=== PATIENT | male | born 1935 | race Caucasian/White ===

== ENCOUNTER 2018-12-22 10:13 | Emergency (ER) | payer OTHER ==
[2018-12-22] MEDS ORDERED: SODIUM CHLORIDE 1,000 ML IV SCH (10:45)
[2018-12-22] MEDS ORDERED: levETIRAcetam 500 MG/5 ML INJECTION VIAL IVPB ONE ×2 (10:57→11:08)
[2018-12-22] MEDS ORDERED: DEXAMETHASONE SOD PHOSPHATE 20 MG/5 ML VIAL IVPB ONE (10:57)
[2018-12-22] MEDS ORDERED: DEXAMETHASONE SOD PHOSPHATE 10 MG/1 ML VIAL IVPUSH ONE (11:01)
[2018-12-22 11:03] VITALS: BMI 23.3
[2018-12-22] MEDS ORDERED: DEXAMETHASONE SOD PHOSPHATE 10 MG/1 ML VIAL ONE (11:08)
[2018-12-22 11:09] LABS: BASO % 0.9 % (0-2.0); EOS % 1.9 % (0-4.5); HEMATOCRIT 38.2 % (35.4-49); HEMOGLOBIN 12.5 GM/dL (11.7-16.9); LYMPH % 23.7 % (8-40); MCH 29.2 pg (25.7-33.7); MCHC 32.9 g/dl (32.0-35.9); MEAN CELL VOLUME 88.9 fl (80-96); NEUT % 64.5 % (42.8-82.8); PLATELET COUNT 107 K/MM3 (134-434); RBC 4.29 M/mm3 (4.00-5.60); RDW 15.1 % (11.9-15.9); WHITE BLOOD COUNT 3.2 K/mm3 (4.0-10.0)
[2018-12-22 11:21] LABS: INR 1.08 (0.83-1.09); PROTHROMBIN TIME (PATIENT) 12.8 SEC (9.7-13.0)
[2018-12-22 11:30] VITALS: BP 150/94; PULSE 54
[2018-12-22 11:41] VITALS: TEMP 98
[2018-12-22 11:43] LABS: CO2 25 mmol/L (21-32); CREATININE 0.8 mg/dL (0.55-1.3)
[2018-12-22 11:44] LABS: ALBUMIN 3.7 g/dl (3.4-5.0)
[2018-12-22 11:45] LABS: ALK PHOS 67 U/L (45-117); ANION GAP 5 MMOL/L (8-16); BILIRUBIN,TOTAL 0.5 mg/dL (0.2-1); BLOOD UREA NITROGEN 16 mg/dL (7-18); CALCIUM 8.4 mg/dL (8.5-10.1); CHLORIDE 107 mmol/L (98-107); CHOLESTEROL 143 mg/dL (50-200); GLUCOSE,RANDOM 122 mg/dL (74-106); HDL CHOLESTEROL 48 mg/dL (40-60); SGOT/AST 20 U/L (15-37); SGPT/ALT 22 U/L (13-61); SODIUM 137 mmol/L (136-145); TOT PROT 6.3 g/dl (6.4-8.2); TRIGLYCERIDES 192 mg/dL (0-150)
--- NOTE | 2018-12-22 11:47 | PDOC ---
Documentation entered by Braydon Miller SCRIBE, acting as scribe for Katelin Woods MD. Katelin Woods MD: This documentation has been prepared by the Angela madison Nirvannie, SCRIBE, under my direction and personally reviewed by me in its entirety. I confirm that the documentation accurately reflects all work, treatment, procedures, and medical decision making performed by me. History of Present Illness - General Stated Complaint: SYNCOPE Time Seen by Provider: 12/22/18 10:34 History Source: EMS, Family Exam Limitations: No Limitations - History of Present Illness Initial Comments: 12/22/18 11:16 The patient is a 83 year old male, h/o HTN, HLD, BPH with a significant past medical history of HTN, HLD, BPH, and GERD, who presents to the emergency department via EMS s/p syncopal episode. As per patient, he was awoke well this morning, went grocery shopping. He was in the garden and suddenly developed right sided headache. He then noted that he was dizzy and syncopized. He was witnessed by a neighbor to syncopize. Upon arrival to the ER, the patient was noted to NOT be able to move the left left side of his body. While at CT, patient had one episode of emesis. Last known well was approximately 9:00AM (spoke to after returning home from grocery store). Family denies any other recent changes for this patient Allergies: [facility], [place] Primary Care Physician: Dr. Mazariegos Last known well: 9:00am 12/23/18 09:34 12/23/18 09:50 tPA Exclusion Checklist 0-3hr - Time Elapsed Date last known well: 12/22/18 Time last known well: 09:30 Elaspsed time: 1 Day(s) and 0 Hour(s) and 20 Minutes - Thrombolytic Therapy Candidate Is the patient eligible for Thrombolytic Therapy?: No - Exclusion Criteria 0-3hr SBP greater than 185 or DBP greater than 110mmHg despite tx: No Recent IC/spinal surgery,head trauma or stroke w/in last 3mo: No Hx of previous IC hemorrhage, IC neoplasm, AVM or aneurysm: No Active internal bleeding: No Blding diathesis(low plt ct, inc PTT,INR>1.7 or use of NOAC): No Symptoms suggest subarachnoid hemorrhage: No CT demonstrates multilobar infarct(>1/3 cerebral hemiphere): No Arterial puncture at noncompressible site in previous 7 days: No Blood glucose concentration less than 50mg/dL (2.7mmol/L): No - Relative Exclusion Criteria 0-3h Life expectancy <1yr/severe co-morbid illness/DENTAL PROFESSIONAL on admit: No : No Patient/family refused: No Rapid improvement: No Stroke severity too mild: No Recent acute IA (w/in previous 3 months): No Seizure at onset with postictal residual neuro impairments: No Major surgery or serious trauma w/in previous 14 days: No Recent GI or hemorrhage (w/in previous 21 days): No - Ineligibility reason(s) Reasons No tPA given: See reason(s) noted above (PATIENT HAS A HEMORRHAGIC STROKE) NIH Stroke Scale - Last Known Well Date/Time & Onset Date Last Known Well: 12/22/18 Time Last Known Well: 09:30 - Initial Evaluation Level of consciousness: Alert Ask patient the month and their age: Answers both correctly Ask patient to open & close eyes; make fist and let go: Obeys both correctly ( PT IS THAI SPEAKING, NEEDS TRANSLATION) Best gaze (horizontal eye movement): Partial gaze palsy Visual field testing: Partial hemianopia Facial paresis (Show teeth/raise eyebrows/close eyes tight): Minor paralysis ( flattened nasolabial fold, asymmetry on smiling) Motor Function: Left Arm: No effort against gravity Motor Function: Right Arm: Normal (extends arm 90 (or 45) degrees for 10 seconds without drift Motor Function: Left Leg: No effort against gravity Motor Function: Right Leg: Normal (extends leg 30 degrees for 5 seconds without drift) Limb Ataxia: No ataxia Sensory(Use pinprick test arms,legs,trunk,face/side to side): Normal Best language (Describe picture, name items, read sentences): No Aphasia Dysarthria (read several words): Normal articulation Extinction and Inattention: Inattention or extinction bilaterally to one of the sensory modalities - Total Score NIH Stroke Scale Score: 10 Past History - Past Medical History Allergies/Adverse Reactions: Allergies Allergy/AdvReac Type Severity Reaction Status Date / Time No Known Drug Allergies Allergy Verified 12/22/18 10:47 Home Medications: Ambulatory Orders Atorvastatin Ca [Lipitor] 40 mg PO HS 06/26/15 Losartan Potassium [Cozaar] 100 mg PO DAILY 01/26/15 Tamsulosin HCl [Flomax -] 0.4 mg PO DAILY 01/26/15 Aspirin [ASA -] 81 mg PO DAILY 12/22/18 Anemia: No Asthma: No Cancer: No Cardiac Disorders: No CVA: No COPD: No CHF: No Dementia: No Diabetes: No GI Disorders: Yes (REFUX) Disorders: Yes (ENLARGED PROSTATE) HTN: Yes Hypercholesterolemia: Yes Liver Disease: No Seizures: No Thyroid Disease: No - Surgical History Abdominal Surgery: No Appendectomy: No Cardiac Surgery: No Cholecystectomy: No Lung Surgery: No Neurologic Surgery: No Orthopedic Surgery: No - Suicide/Smoking/Psychosocial Hx Smoking History: Never smoked Have you smoked in the past 12 months: No Hx Alcohol Use: No Drug/Substance Use Hx: No Substance Use Type: None Hx Substance Use Treatment: No Review of Systems - Review of Systems Able to Perform ROS?: Yes Comments:: 12/22/18 11:16 CONSTITUTIONAL: No fever, no chills, no fatigue EYES: No visual changes ENT: No ear pain, no sore throat CARDIOVASCULAR: No chest pain, no palpitations RESPIRATORY: No cough, no SOB GI: No abdominal pain, no nausea, no vomiting, no constipation, no diarrhea GENITOURINARY: No dysuria, no frequency, no hematuria MUSKULOSKELETAL: No back pain, no joint pain, no myalgias SKIN: No rash NEURO: + headache, +Syncope. +Left sided weakness. *Physical Exam - Physical Exam Comments: 12/23/18 09:50 GENERAL: The patient is in no acute distress, pt is calm. HEAD: Normal with no external signs of trauma. EYES: PERRLA, EOMI, sclera anicteric, conjunctiva clear. ENT: Moist mucous membranes. NECK: Normal range of motion, supple without midline tenderness to palpation LUNGS: Breath sounds equal, clear to auscultation bilaterally. No wheezes, and no crackles. HEART:Regular rate and rhythm, normal S1 and S2 without murmur, rub or gallop. ABDOMEN: Soft, nontender, normoactive bowel sounds. EXTREMITIES: Normal range of motion, no edema. NEUROLOGICAL: Pt is awake and alert He responds to questions appropriately (when asked in Maltese pt understands) Flattened left nasolabial fold Left arm weakness Left leg weakness Right arm able to hold up against gravity Right leg abld to hold up against gravity Speech is clear Left sided hemineglect MUSCULOSKELETAL: Back non-tender to palpation, no CVA tenderness SKIN: Warm, Dry, normal turgor, no rashes or lesions noted. ED Treatment Course - LABORATORY CBC & Chemistry Diagram: 12/22/18 10:40 12/22/18 10:40 - ADDITIONAL ORDERS Additional order review: Laboratory Results 12/22/18 10:34 POC Glucometer 111 12/22/18 10:34 POC Glucometer 111 - RADIOLOGY Radiology Studies Ordered: Category Date Time Status HEAD CT (STROKE) [CT] Stat CT Scan 12/22/18 10:34 Taken Medical Decision Making - Critical Care Time Total Critical Care Time (minutes): 60 Critical Care Statement: The care of this patient involved high complexity decision making to prevent further life threatening deterioration of the patient 's condition and/or to evaluate & treat vital organ system(s) failure or risk of failure. - Medical Decision Making CT reveals LARGE Parieto occipital hemorrhage Call placed to Dr Lane He has called back and has viewed CT Recommends Keppra and Decadron Call placed to Radiology ? underlying mass 12/22/18 11:08 Call placed to [facility] Awaiting NSGY call back 12/22/18 11:[address] Javier (NSGY) Recommends Platelets if Plt count less than 100 Is ok with Keppra 12/22/18 11:[address] Alvarenga [facility] available for transfer 12/22/18 11:53 EKG - Twelve-lead EKG was performed and reviewed by me. There is normal sinus rhythm rate of 56 bpm. axis nml, intervals nml, no st elevation or depression. 12/22/18 11:54 Laboratory Tests 12/22/18 12/22/18 12/22/18 10:40 10:40 10:40 WBC 3.2 L Hgb 12.5 Hct 38.2 Plt Count 107 L INR 1.08 BUN 16 Creatinine 0.8 Creatine Kinase 126 Troponin I < 0.02 Clinical Impression: Intraparenchymal bleed, initial presentation Hemorrhagic CVA, initial presentation *DC/Admit/Observation/Transfer Diagnosis at time of Disposition: Acute hemorrhoid - Discharge Dispostion Disposition: TRANSFER ACUTE CARE/OTHER HOSP Condition at time of disposition: Fair Decision to Admit order: No - Referrals Referrals: Srinivas Mazariegos MD [Primary Care Provider] - - Patient Instructions - Post Discharge Activity - Transfer to Acute Care Facility Receiving Facility: [facility]
--- NOTE | 2018-12-22 12:53 | EKG ---
Test Reason : Blood Pressure : / mmHG Vent. Rate : 056 BPM Atrial Rate : 056 BPM P-R Int : 156 ms QRS Dur : 090 ms QT Int : 420 ms P-R-T Axes : 009 -26 012 degrees QTc Int : 405 ms SINUS BRADYCARDIA MINIMAL VOLTAGE CRITERIA FOR LVH, MAY BE NORMAL VARIANT BORDERLINE ECG NO PREVIOUS ECGS AVAILABLE Confirmed by MISTY QUIÑONEZ MD ([id number]) on 12/22/2018 12:53:11 PM Referred By: Confirmed By:MISTY QUIÑONEZ MD
== END 2018-12-22 11:42 | disposition short-term general hospital (02) ==
LOC: JER 10:13
PROC: 3E033GC Introduction of Other Therapeutic Substance into Peripheral Vein, Percutaneous Approach (ICD-10-PCS; principal; 2018-12-22)
DX: I62.9 Nontraumatic intracranial hemorrhage, unspecified (principal); I10 Essential (primary) hypertension; E78.00 Pure hypercholesterolemia, unspecified; K21.9 Gastro-esophageal reflux disease without esophagitis
CPT/HCPCS: 36415; 70450-TC; 71045-TC-FY; 80053; 82465; 82550; 82962; 83718; 83721; 84478; 84484; 85025; 85610; 86850; 86900; 86901; 93005; 93010; 99285-25; J1100; J7030

== ENCOUNTER 2023-03-30 17:30 | Inpatient (IN) | payer OTHER ==
[2023-03-30 18:51] LABS: PROTHROMBIN TIME (PATIENT) 11.6 SEC (9.7-13.0)
[2023-03-30 18:53] LABS: ACTIVATED PTT 28.8 SECONDS (25.2-36.5)
[2023-03-30 18:54] LABS: POTASSIUM 4.3 mmol/L (3.5-5.1)
[2023-03-30 18:55] LABS: CALCIUM 8.7 mg/dL (8.5-10.1)
[2023-03-30 18:56] LABS: ALBUMIN 3.5 g/dl (3.4-5.0)
[2023-03-30 18:57] LABS: BLOOD UREA NITROGEN 14.6 mg/dL (7-18)
[2023-03-30 18:59] LABS: CREATININE 1.1 mg/dL (0.55-1.3)
[2023-03-30 19:01] LABS: TOT PROT 6.6 g/dl (6.4-8.2)
[2023-03-30 19:02] LABS: BILIRUBIN,TOTAL 0.4 mg/dL (0.2-1)
[2023-03-30 19:31] LABS: BASO % 1.2 % (0-2.0); EOS % 2.1 % (0-4.5); HEMATOCRIT 34.1 % (35.4-49); HEMOGLOBIN 11.3 GM/dL (11.7-16.9); LYMPH % 23.6 % (8-40); MCH 29.1 pg (25.7-33.7); MCHC 33.2 g/dl (32.0-35.9); MEAN CELL VOLUME 87.6 fl (80-96); MEAN PLT VOLUME 8.8 fl (7.5-11.1); MONO % 9.6 % (3.8-10.2); NEUT % 63.5 % (42.8-82.8); PLATELET COUNT 155 10^3/uL (134-434); RDW 15.2 % (11.9-15.9); WHITE BLOOD COUNT 4.4 K/mm3 (4.0-10.0)
[2023-03-30 23:05] LABS: EPI CELLS 4 /uL (0-25.1); HYALINE CASTS 0 /uL (0-3.1); URINE APPEARANCE CLEAR; URINE BACTERIA 14 /uL (0-1359); URINE BILIRUBIN NEGATIVE (NEGATIVE); URINE COLOR YELLOW; URINE GLUCOSE (UA) NEGATIVE (NEGATIVE); URINE KETONE NEGATIVE (NEGATIVE); URINE LEUK ESTERASE NEGATIVE (NEGATIVE); URINE NITRITE NEGATIVE (NEGATIVE); URINE PROTEIN NEGATIVE (NEGATIVE); URINE RBC 118 /uL (0-23.9); URINE UROBILINOGEN 0.2 mg/dL (0.2-1.0); URINE WBC 3 /uL (0-25.8)
[2023-03-31 09:40] LABS: BASO % 0.4 % (0-2.0); EOS % 1.4 % (0-4.5); HEMATOCRIT 33.7 % (35.4-49); HEMOGLOBIN 11.6 GM/dL (11.7-16.9); LYMPH % 15.9 % (8-40); MCH 29.2 pg (25.7-33.7); MCHC 34.4 g/dl (32.0-35.9); MEAN CELL VOLUME 84.7 fl (80-96); MEAN PLT VOLUME 8.6 fl (7.5-11.1); MONO % 7.1 % (3.8-10.2); NEUT % 75.2 % (42.8-82.8); PLATELET COUNT 137 10^3/uL (134-434); RBC 3.97 M/mm3 (4.00-5.60); RDW 15.1 % (11.9-15.9); WHITE BLOOD COUNT 5.8 K/mm3 (4.0-10.0)
[2023-03-31 10:11] LABS: POTASSIUM 4.1 mmol/L (3.5-5.1)
[2023-03-31 10:15] LABS: CALCIUM 8.4 mg/dL (8.5-10.1)
[2023-03-31 10:17] LABS: ALBUMIN 3.5 g/dl (3.4-5.0); BLOOD UREA NITROGEN 13.3 mg/dL (7-18)
[2023-03-31 10:19] LABS: CREATININE 0.8 mg/dL (0.55-1.3)
[2023-03-31 10:20] LABS: BILIRUBIN,TOTAL 0.4 mg/dL (0.2-1)
[2023-03-31 10:21] LABS: TOT PROT 6.3 g/dl (6.4-8.2)
[2023-03-31] MEDS: LISINOPRIL 5 MG TABLET PO SCH (22:06)
[2023-03-31] MEDS: MEMANTINE HCL 5 MG TABLET (UD) PO SCH (22:06)
[2023-03-31] MEDS: ROSUVASTATIN CA 10 MG TABLET PO SCH (22:06)
[2023-03-31] MEDS: HEPARIN NA (PORCINE) 5,000 UNITS/ML 1ML VIAL SQ SCH (22:06)
[2023-03-31] MEDS: TAMSULOSIN HCL 0.4 MG CAP PO SCH (22:06)
[2023-04-01] MEDS: INSULIN (NOVOLOG) ASPART 100 UNITS/ML 10ML VIAL SQ SCH ×3 (06:02→17:58)
[2023-04-01] MEDS: glipiZIDE-XL 5 MG TAB.ER.24 PO SCH (06:03)
[2023-04-01] MEDS: metFORMIN HCL 500 MG TABLET (FP) PO SCH (06:03)
[2023-04-01 08:54] LABS: CHOLESTEROL 145 mg/dL (50-200)
[2023-04-01 08:55] LABS: LDL CHOLESTEROL (ONLY SJRH) 57 mg/dL (5-100)
[2023-04-01 08:58] LABS: HDL CHOLESTEROL 38 mg/dL (40-60)
[2023-04-01] MEDS: levETIRAcetam 250 MG TABLET PO SCH (09:39)
[2023-04-01] MEDS: ESCITALOPRAM OXALATE 10 MG TABLET PO SCH (09:39)
[2023-04-01] MEDS: HEPARIN NA (PORCINE) 5,000 UNITS/ML 1ML VIAL SQ SCH ×2 (09:39→22:31)
[2023-04-01] MEDS: FINASTERIDE 5 MG TABLET (FP) PO SCH (09:39)
[2023-04-01] MEDS ORDERED: CLOPIDOGREL BISULFATE 75 MG TABLET (FP) PO ONE (12:00)
[2023-04-01] MEDS: ASPIRIN COATED 81 MG TABLET.EC PO SCH (14:40)
[2023-04-01] MEDS ORDERED: INSULIN (NOVOLOG) ASPART 100 UNITS/ML 10ML VIAL ONE (17:47)
[2023-04-01] MEDS: PANTOPRAZOLE 40 MG TABLET PO SCH (17:58)
[2023-04-01] MEDS: TAMSULOSIN HCL 0.4 MG CAP PO SCH (22:30)
[2023-04-01] MEDS: ROSUVASTATIN CA 10 MG TABLET PO SCH (22:30)
[2023-04-01] MEDS: MEMANTINE HCL 5 MG TABLET (UD) PO SCH (22:30)
[2023-04-01] MEDS: LISINOPRIL 5 MG TABLET PO SCH (22:30)
[2023-04-02] MEDS: metFORMIN HCL 500 MG TABLET (FP) PO SCH (06:51)
[2023-04-02] MEDS: glipiZIDE-XL 5 MG TAB.ER.24 PO SCH (06:51)
[2023-04-02] MEDS: INSULIN (NOVOLOG) ASPART 100 UNITS/ML 10ML VIAL SQ SCH ×3 (06:52→21:52)
[2023-04-02] MEDS: PANTOPRAZOLE 40 MG TABLET PO SCH (09:43)
[2023-04-02] MEDS: CLOPIDOGREL BISULFATE 75 MG TABLET (FP) PO SCH (09:43)
[2023-04-02] MEDS: ESCITALOPRAM OXALATE 10 MG TABLET PO SCH (09:43)
[2023-04-02] MEDS: HEPARIN NA (PORCINE) 5,000 UNITS/ML 1ML VIAL SQ SCH ×2 (09:43→21:53)
[2023-04-02] MEDS: levETIRAcetam 250 MG TABLET PO SCH (09:43)
[2023-04-02] MEDS: FINASTERIDE 5 MG TABLET (FP) PO SCH (09:43)
[2023-04-02] MEDS: ASPIRIN COATED 81 MG TABLET.EC PO SCH (09:43)
[2023-04-02] MEDS: GEMFIBROZIL 600 MG TABLET (FP) PO SCH (18:05)
[2023-04-02] MEDS: LISINOPRIL 5 MG TABLET PO SCH (21:52)
[2023-04-02] MEDS: TAMSULOSIN HCL 0.4 MG CAP PO SCH (21:52)
[2023-04-02] MEDS: ROSUVASTATIN CA 10 MG TABLET PO SCH (21:52)
[2023-04-02] MEDS: MEMANTINE HCL 5 MG TABLET (UD) PO SCH (21:53)
[2023-04-02 23:41] VITALS: BMI 23.8
[2023-04-03] MEDS: INSULIN (NOVOLOG) ASPART 100 UNITS/ML 10ML VIAL SQ SCH ×2 (05:59→12:23)
[2023-04-03] MEDS: glipiZIDE-XL 5 MG TAB.ER.24 PO SCH (06:00)
[2023-04-03] MEDS: metFORMIN HCL 500 MG TABLET (FP) PO SCH (06:00)
[2023-04-03] MEDS: GEMFIBROZIL 600 MG TABLET (FP) PO SCH (06:00)
[2023-04-03 09:48] VITALS: RESP 17; TEMP 97.8
[2023-04-03 10:02] VITALS: BP 111/66; PULSE 73
[2023-04-03] MEDS: PANTOPRAZOLE 40 MG TABLET PO SCH (10:02)
[2023-04-03] MEDS: FINASTERIDE 5 MG TABLET (FP) PO SCH (10:02)
[2023-04-03] MEDS: CLOPIDOGREL BISULFATE 75 MG TABLET (FP) PO SCH (10:02)
[2023-04-03] MEDS: ASPIRIN COATED 81 MG TABLET.EC PO SCH (10:02)
[2023-04-03] MEDS: levETIRAcetam 250 MG TABLET PO SCH (10:02)
[2023-04-03] MEDS: ESCITALOPRAM OXALATE 10 MG TABLET PO SCH (10:02)
[2023-04-03] MEDS: HEPARIN NA (PORCINE) 5,000 UNITS/ML 1ML VIAL SQ SCH (10:02)
== END 2023-04-03 12:45 | disposition home or self-care (01) | DRG 65 ==
LOC: JER 17:30 → JERBED 19:49 → J4W 03-31 01:49 → OBSVTOIN 04-01 09:48
PROVIDERS: ADMIT Internal Medicine; ATTEND Internal Medicine
DX: I63.89 Other cerebral infarction (principal); I69.354 Hemiplegia and hemiparesis following cerebral infarction affecting left non-dominant side; I10 Essential (primary) hypertension; E78.5 Hyperlipidemia, unspecified; N40.0 Benign prostatic hyperplasia without lower urinary tract symptoms; K21.9 Gastro-esophageal reflux disease without esophagitis; F03.90 Unspecified dementia, unspecified severity, without behavioral disturbance, psychotic disturbance, mood disturbance, and anxiety; R29.708 NIHSS score 8; E11.9 Type 2 diabetes mellitus without complications
CPT/HCPCS: 0241U-QW; 36415; 70450-TC; 70551-TC; 71045-TC-FY; 80053; 80061; 81003; 82550; 82962; 83036; 84439; 84443; 84484; 85025; 85610; 85730; 86850; 86900; 86901; 93005; 93010; 93306-TC; 93880-TC; 97116-GP; 97162-GP; 99285-25; G0378; J1644

== ENCOUNTER 2023-04-04 05:49 | Inpatient (IN) | payer OTHER ==
[2023-04-04] MEDS ORDERED: ACETAMINOPHEN 1000 MG/100 ML BAG IVPB ONE (06:10)
[2023-04-04] MEDS ORDERED: LACTATED RINGERS SOLUTION 1000 ML INFUS.BAG IV ONE ×2 (06:11→07:37)
[2023-04-04] MEDS ORDERED: PIPERACILLIN/TAZOB 4.5 GM 4.5 GM in DEXTROSE 5%-WATER 100 ML IVPB ONE (06:12)
[2023-04-04] MEDS ORDERED: VANCOMYCIN 1,000 MG in DEXTROSE 5%-WATER - 250 ML IVPB ONE (06:12)
[2023-04-04] MEDS ORDERED: PIPERACILLIN/TAZOB 4.5 GM 4.5 GM/100 ML BAG IVPB ONE (06:19)
[2023-04-04] MEDS ORDERED: ACETAMINOPHEN INJECTION 100 ML IVPB ONE (06:19)
[2023-04-04] MEDS ORDERED: VANCOMYCIN 1 GRAM (PRE-DOCKED) 1,000 MG/250 ML BAG IVPB ONE (06:20)
[2023-04-04 06:54] LABS: EPI CELLS 7 /uL (0-25.1); HYALINE CASTS 0 /uL (0-3.1); PH,URINE 5.5 (5.0-8.0); URINE APPEARANCE CLOUDY; URINE BACTERIA 2673 /uL (0-1359); URINE BILIRUBIN NEGATIVE (NEGATIVE); URINE COLOR YELLOW; URINE GLUCOSE (UA) NEGATIVE (NEGATIVE); URINE KETONE NEGATIVE (NEGATIVE); URINE LEUK ESTERASE 3+ (NEGATIVE); URINE NITRITE NEGATIVE (NEGATIVE); URINE PROTEIN 2+ (NEGATIVE); URINE RBC 641 /uL (0-23.9); URINE WBC 1692 /uL (0-25.8)
[2023-04-04 07:09] LABS: HEMATOCRIT 36.1 % (35.4-49); HEMOGLOBIN 12.2 GM/dL (11.7-16.9); MCH 29.3 pg (25.7-33.7); MCHC 33.9 g/dl (32.0-35.9); MEAN CELL VOLUME 86.5 fl (80-96); PLATELET COUNT 154 10^3/uL (134-434); RBC 4.17 M/mm3 (4.00-5.60); RDW 16.1 % (11.9-15.9); WHITE BLOOD COUNT 6.2 K/mm3 (4.0-10.0)
[2023-04-04 07:10] LABS: VENOUS BASE EXCESS -5.4 mmol/L (-2-2); VENOUS O2 SATURATION 97.9 % (70-80); VENOUS PCO2 31.7 mmHg (38-52); VENOUS PH 7.385 (7.310-7.410)
[2023-04-04 07:12] LABS: ALBUMIN 3.5 g/dl (3.4-5.0); BLOOD UREA NITROGEN 13.6 mg/dL (7-18); CALCIUM 8.4 mg/dL (8.5-10.1)
[2023-04-04 07:16] LABS: CREATININE 1.2 mg/dL (0.55-1.3)
[2023-04-04 07:17] LABS: BILIRUBIN,TOTAL 0.7 mg/dL (0.2-1); TOT PROT 6.8 g/dl (6.4-8.2)
[2023-04-04 08:46] LABS: YEAST NO SEEN (NEGATIVE)
[2023-04-04] MEDS ORDERED: SODIUM CHLORIDE 1,000 ML IV SCH (10:15)
[2023-04-04] MEDS ORDERED: PIPERACILLIN/TAZOB 3.375 GM 3.375 GM/50 ML BAG IVPB ONE (10:37)
[2023-04-04] MEDS: PIPERACILLIN/TAZOB 3.375 GM 3.375 GM in DEXTROSE 5%-WATER - 50 ML IVPB SCH ×2 (10:45→18:27)
[2023-04-04 10:56] LABS: ANISOCYTOSIS 0; HELMET CELLS 0; HOWELL-JOLLY BODIES 0; MACROCYTOSIS 0; OVALOCYTE 0; ROULEAU 0; SICKELED CELLS 0; TARGET CELLS 0; TEAR DROP CELLS 0; TOXIC GRANULATION 0
[2023-04-04 11:17] LABS: LACTIC ACID 3.5 mmol/L (0.4-2.0)
[2023-04-04 11:18] LABS: INR 1.18 (0.83-1.09); PROTHROMBIN TIME (PATIENT) 13.7 SEC (9.7-13.0)
[2023-04-04 11:21] LABS: ACTIVATED PTT 22.1 SECONDS (25.2-36.5)
[2023-04-04] MEDS: SODIUM CHLORIDE 1,000 ML IV SCH (12:01)
[2023-04-04] MEDS: INSULIN SLIDING SCALE (NOVOLOG) 1 VIAL SQ SCH ×3 (12:23→23:09)
[2023-04-04] MEDS: GEMFIBROZIL 600 MG TABLET (FP) PO SCH (16:19)
[2023-04-04] MEDS: ACETAMINOPHEN 325 MG TABLET (FP) PO PRN (16:19)
[2023-04-04] MEDS ORDERED: PIPERACILLIN/TAZOB 3.375 GM 3.375 GM in DEXTROSE 5%-WATER - 50 ML IVPB SCH (18:00)
[2023-04-04] MEDS: ROSUVASTATIN CA 10 MG TABLET PO SCH (22:57)
[2023-04-04] MEDS: TAMSULOSIN HCL 0.4 MG CAP PO SCH (22:57)
[2023-04-04] MEDS: HEPARIN NA (PORCINE) 5,000 UNITS/ML 1ML VIAL SQ SCH (22:58)
[2023-04-04] MEDS: levETIRAcetam 250 MG TABLET PO SCH (22:58)
[2023-04-04 23:13] VITALS: BMI 23.4
[2023-04-05] MEDS: PIPERACILLIN/TAZOB 3.375 GM 3.375 GM in DEXTROSE 5%-WATER - 50 ML IVPB SCH ×3 (01:58→17:19)
[2023-04-05] MEDS: ACETAMINOPHEN 325 MG TABLET (FP) PO PRN ×2 (06:00→20:23)
[2023-04-05] MEDS: GEMFIBROZIL 600 MG TABLET (FP) PO SCH ×2 (06:03→16:12)
[2023-04-05] MEDS: INSULIN SLIDING SCALE (NOVOLOG) 1 VIAL SQ SCH ×4 (06:03→22:18)
[2023-04-05] MEDS: SODIUM CHLORIDE 1,000 ML IV SCH ×3 (06:07→17:21)
[2023-04-05] MEDS ORDERED: metFORMIN HCL 500 MG TABLET (FP) PO SCH (07:00)
[2023-04-05 08:21] LABS: POTASSIUM 3.8 mmol/L (3.5-5.1)
[2023-04-05 08:24] LABS: CALCIUM 7.7 mg/dL (8.5-10.1)
[2023-04-05 08:25] LABS: ALBUMIN 2.9 g/dl (3.4-5.0); BASO % 0.5 % (0-2.0); BLOOD UREA NITROGEN 11.2 mg/dL (7-18); HEMOGLOBIN 9.6 GM/dL (11.7-16.9); LYMPH % 9.3 % (8-40); MCH 28.5 pg (25.7-33.7); MCHC 33.1 g/dl (32.0-35.9); MEAN CELL VOLUME 86.1 fl (80-96); MEAN PLT VOLUME 8.9 fl (7.5-11.1); NEUT % 80.2 % (42.8-82.8); PLATELET COUNT 119 10^3/uL (134-434); RBC 3.37 M/mm3 (4.00-5.60); RDW 16.3 % (11.9-15.9); WHITE BLOOD COUNT 4.9 K/mm3 (4.0-10.0)
[2023-04-05 08:29] LABS: TOT PROT 5.4 g/dl (6.4-8.2)
[2023-04-05 08:30] LABS: BILIRUBIN,TOTAL 0.6 mg/dL (0.2-1)
[2023-04-05] MEDS: ESCITALOPRAM OXALATE 10 MG TABLET PO SCH (10:13)
[2023-04-05] MEDS: PANTOPRAZOLE 40 MG TABLET PO SCH (10:14)
[2023-04-05] MEDS: MEMANTINE HCL 5 MG TABLET (UD) PO SCH (10:14)
[2023-04-05] MEDS: HEPARIN NA (PORCINE) 5,000 UNITS/ML 1ML VIAL SQ SCH ×2 (10:14→22:17)
[2023-04-05] MEDS: levETIRAcetam 250 MG TABLET PO SCH ×2 (10:14→22:17)
[2023-04-05] MEDS: ASPIRIN COATED 81 MG TABLET.EC PO SCH (10:14)
[2023-04-05] MEDS: CLOPIDOGREL BISULFATE 75 MG TABLET (FP) PO SCH (10:14)
[2023-04-05] MEDS: FINASTERIDE 5 MG TABLET (FP) PO SCH (10:14)
[2023-04-05] MEDS: LISINOPRIL 5 MG TABLET PO SCH (10:15)
[2023-04-05] MEDS ORDERED: INSULIN (NOVOLOG) ASPART 100 UNITS/ML 10ML VIAL ONE (11:41)
[2023-04-05] MEDS: TAMSULOSIN HCL 0.4 MG CAP PO SCH (22:17)
[2023-04-05] MEDS: ROSUVASTATIN CA 10 MG TABLET PO SCH (22:17)
[2023-04-06] MEDS: PIPERACILLIN/TAZOB 3.375 GM 3.375 GM in DEXTROSE 5%-WATER - 50 ML IVPB SCH ×3 (01:43→17:16)
[2023-04-06] MEDS: INSULIN SLIDING SCALE (NOVOLOG) 1 VIAL SQ SCH ×4 (08:00→21:51)
[2023-04-06] MEDS: GEMFIBROZIL 600 MG TABLET (FP) PO SCH ×2 (08:02→17:16)
[2023-04-06] MEDS: MEMANTINE HCL 5 MG TABLET (UD) PO SCH (09:41)
[2023-04-06] MEDS: ASPIRIN COATED 81 MG TABLET.EC PO SCH (09:41)
[2023-04-06] MEDS: LISINOPRIL 5 MG TABLET PO SCH (09:41)
[2023-04-06] MEDS: CLOPIDOGREL BISULFATE 75 MG TABLET (FP) PO SCH (09:41)
[2023-04-06] MEDS: ESCITALOPRAM OXALATE 10 MG TABLET PO SCH (09:46)
[2023-04-06] MEDS: FINASTERIDE 5 MG TABLET (FP) PO SCH (09:46)
[2023-04-06] MEDS: PANTOPRAZOLE 40 MG TABLET PO SCH (09:46)
[2023-04-06] MEDS: levETIRAcetam 250 MG TABLET PO SCH ×2 (09:46→21:46)
[2023-04-06] MEDS: HEPARIN NA (PORCINE) 5,000 UNITS/ML 1ML VIAL SQ SCH ×2 (09:46→21:46)
[2023-04-06] MEDS: SODIUM CHLORIDE 1,000 ML IV SCH (09:49)
[2023-04-06] MEDS ORDERED: INSULIN (NOVOLOG) ASPART 100 UNITS/ML 10ML VIAL ONE (13:15)
[2023-04-06] MEDS: ACETAMINOPHEN 325 MG TABLET (FP) PO PRN (20:29)
[2023-04-06] MEDS: ROSUVASTATIN CA 10 MG TABLET PO SCH (21:46)
[2023-04-06] MEDS: TAMSULOSIN HCL 0.4 MG CAP PO SCH (21:46)
[2023-04-06] MEDS: SENNOSIDES 8.8 MG/5 ML SYRUP PO SCH (21:51)
[2023-04-07] MEDS: PIPERACILLIN/TAZOB 3.375 GM 3.375 GM in DEXTROSE 5%-WATER - 50 ML IVPB SCH ×3 (03:12→17:22)
[2023-04-07] MEDS ORDERED: INSULIN (NOVOLOG) ASPART 100 UNITS/ML 10ML VIAL ONE ×2 (06:26→11:42)
[2023-04-07] MEDS: INSULIN SLIDING SCALE (NOVOLOG) 1 VIAL SQ SCH ×4 (06:27→22:26)
[2023-04-07] MEDS: GEMFIBROZIL 600 MG TABLET (FP) PO SCH ×2 (06:48→17:21)
[2023-04-07 08:10] LABS: HEMATOCRIT 31.6 % (35.4-49); HEMOGLOBIN 10.4 GM/dL (11.7-16.9); MCH 28.6 pg (25.7-33.7); MEAN CELL VOLUME 86.6 fl (80-96); MEAN PLT VOLUME 9.1 fl (7.5-11.1); PLATELET COUNT 140 10^3/uL (134-434); RBC 3.64 M/mm3 (4.00-5.60); WHITE BLOOD COUNT 4.4 K/mm3 (4.0-10.0)
[2023-04-07 08:13] LABS: CALCIUM 8.6 mg/dL (8.5-10.1)
[2023-04-07 08:16] LABS: ALBUMIN 2.8 g/dl (3.4-5.0)
[2023-04-07 08:17] LABS: CREATININE 0.8 mg/dL (0.55-1.3)
[2023-04-07 08:19] LABS: BILIRUBIN,TOTAL 0.6 mg/dL (0.2-1); TOT PROT 5.8 g/dl (6.4-8.2)
[2023-04-07] MEDS ORDERED: ONDANSETRON 4 MG/2 ML VIAL IVPUSH PRN (09:44)
[2023-04-07] MEDS: SODIUM CHLORIDE 0.45% 1,000 ML IV SCH (11:40)
[2023-04-07] MEDS: HEPARIN NA (PORCINE) 5,000 UNITS/ML 1ML VIAL SQ SCH ×2 (11:44→22:17)
[2023-04-07] MEDS: FINASTERIDE 5 MG TABLET (FP) PO SCH (11:45)
[2023-04-07] MEDS: CLOPIDOGREL BISULFATE 75 MG TABLET (FP) PO SCH (11:45)
[2023-04-07] MEDS: ASPIRIN COATED 81 MG TABLET.EC PO SCH (11:45)
[2023-04-07] MEDS: MEMANTINE HCL 5 MG TABLET (UD) PO SCH (11:46)
[2023-04-07] MEDS: levETIRAcetam 250 MG TABLET PO SCH ×2 (11:46→22:10)
[2023-04-07] MEDS: PANTOPRAZOLE 40 MG TABLET PO SCH (11:46)
[2023-04-07] MEDS: ESCITALOPRAM OXALATE 10 MG TABLET PO SCH (11:46)
[2023-04-07] MEDS: LISINOPRIL 5 MG TABLET PO SCH (11:47)
[2023-04-07] MEDS: POLYETHYLENE GLYCOL (HEALTHYLAX) 3350 17 GM PACKET PO SCH ×2 (14:26→22:11)
[2023-04-07] MEDS: TAMSULOSIN HCL 0.4 MG CAP PO SCH (22:10)
[2023-04-07] MEDS: SENNOSIDES 8.8 MG/5 ML SYRUP PO SCH (22:10)
[2023-04-07] MEDS: ROSUVASTATIN CA 10 MG TABLET PO SCH (22:17)
[2023-04-08] MEDS: PIPERACILLIN/TAZOB 3.375 GM 3.375 GM in DEXTROSE 5%-WATER - 50 ML IVPB SCH ×2 (04:00→10:13)
[2023-04-08 06:11] VITALS: TEMP 98.8
[2023-04-08] MEDS: INSULIN SLIDING SCALE (NOVOLOG) 1 VIAL SQ SCH ×2 (06:34→11:53)
[2023-04-08] MEDS: GEMFIBROZIL 600 MG TABLET (FP) PO SCH (06:34)
[2023-04-08 09:47] VITALS: BP 152/79; PULSE 60; RESP 18
[2023-04-08] MEDS: SODIUM CHLORIDE 0.45% 1,000 ML IV SCH (10:09)
[2023-04-08] MEDS: MEMANTINE HCL 5 MG TABLET (UD) PO SCH (10:11)
[2023-04-08] MEDS: POLYETHYLENE GLYCOL (HEALTHYLAX) 3350 17 GM PACKET PO SCH (10:11)
[2023-04-08] MEDS: PANTOPRAZOLE 40 MG TABLET PO SCH (10:11)
[2023-04-08] MEDS: ASPIRIN COATED 81 MG TABLET.EC PO SCH (10:11)
[2023-04-08] MEDS: levETIRAcetam 250 MG TABLET PO SCH (10:11)
[2023-04-08] MEDS: CLOPIDOGREL BISULFATE 75 MG TABLET (FP) PO SCH (10:11)
[2023-04-08] MEDS: FINASTERIDE 5 MG TABLET (FP) PO SCH (10:11)
[2023-04-08] MEDS: LISINOPRIL 5 MG TABLET PO SCH (10:12)
[2023-04-08] MEDS: ESCITALOPRAM OXALATE 10 MG TABLET PO SCH (10:12)
[2023-04-08] MEDS: HEPARIN NA (PORCINE) 5,000 UNITS/ML 1ML VIAL SQ SCH (10:12)
[2023-04-08] MEDS ORDERED: SODIUM CHLORIDE 0.45% 1,000 ML IV SCH (10:55)
[2023-04-08] MEDS ORDERED: MINERAL OIL ENEMA 133 ML ENEMA RC ONE (11:43)
== END 2023-04-08 14:53 | disposition home or self-care (01) | DRG 872 ==
LOC: JER 05:49 → JERBED 06:25 → J4W 13:50
PROVIDERS: ADMIT Internal Medicine; ATTEND Internal Medicine
DX: A41.89 Other specified sepsis (principal); G81.94 Hemiplegia, unspecified affecting left nondominant side; E87.20 Acidosis, unspecified; N17.9 Acute kidney failure, unspecified; N39.0 Urinary tract infection, site not specified; K21.9 Gastro-esophageal reflux disease without esophagitis; I10 Essential (primary) hypertension; E78.5 Hyperlipidemia, unspecified; F03.90 Unspecified dementia, unspecified severity, without behavioral disturbance, psychotic disturbance, mood disturbance, and anxiety; R68.89 Other general symptoms and signs; N40.1 Benign prostatic hyperplasia with lower urinary tract symptoms; R33.8 Other retention of urine; M54.9 Dorsalgia, unspecified; N28.9 Disorder of kidney and ureter, unspecified; D69.6 Thrombocytopenia, unspecified
CPT/HCPCS: 0241U-QW; 36415; 71045-TC-FY; 74177-TC; 80053; 81003; 82553; 82803; 82962; 83605; 84484; 85025; 85610; 85730; 86850; 86900; 86901; 87040; 87076; 87086; 93005; 93010; 99285-25; J1644; Q9967

== ENCOUNTER 2024-01-27 11:10 | Emergency (ER) | payer OTHER ==
[2024-01-27 11:31] VITALS: TEMP 98.4; BMI 24.2
[2024-01-27] MEDS: TETRACAINE 0.5% HCL 0.6ML DROPPER.BOTTLE OS ONE (13:56)
[2024-01-27] MEDS ORDERED: TETRACAINE 0.5% OPHTH SOLN 2 ML BOTTLE ONE (13:56)
[2024-01-27] MEDS ORDERED: FLUORESCEIN NA 1 EA STRIP ONE (13:56)
[2024-01-27] MEDS: FLUORESCEIN NA 1 EA STRIP OS ONE (13:56)
[2024-01-27] MEDS ORDERED: valACYclovir HCL 500 MG TABLET (FP) ONE (16:43)
[2024-01-27] MEDS: valACYclovir HCL 500 MG TABLET (FP) PO ONE (16:45)
[2024-01-27 17:08] VITALS: BP 158/74; PULSE 68; RESP 16
== END 2024-01-27 17:08 | disposition short-term general hospital (02) ==
LOC: JERFT 11:10
DX: R21 Rash and other nonspecific skin eruption (principal); B02.39 Other herpes zoster eye disease
CPT/HCPCS: 99285-25